=== PATIENT | male | born 1960 | race African-American/Black ===

== ENCOUNTER 2021-12-19 23:45 | Emergency (ER) | payer BC ==
[2021-12-19 23:53] VITALS: BP 136/100; PULSE 80; RESP 18; TEMP 98.6; BMI 26.6
[2021-12-20] MEDS ORDERED: FAMOTIDINE 20 MG/50 ML IVPB 20 MG/50 ML MG IVPB ONE ×2 (00:20→00:51)
[2021-12-20] MEDS ORDERED: ACETAMINOPHEN 1000 MG/100 ML BAG IVPB ONE (00:20)
[2021-12-20] MEDS ORDERED: ONDANSETRON 4 MG/2 ML VIAL IVPUSH ONE (00:20)
[2021-12-20] MEDS ORDERED: SODIUM CHLORIDE 0.9% 500 ML INFUS.BAG IV ONE (00:20)
[2021-12-20] MEDS ORDERED: ACETAMINOPHEN INJECTION 100 ML IVPB ONE (00:51)
[2021-12-20] MEDS ORDERED: ONDANSETRON 4 MG/2 ML VIAL ONE (00:51)
[2021-12-20 01:25] LABS: BASO % 1.3 % (0-2.0); EOS % 0.9 % (0-4.5); HEMATOCRIT 38.5 % (35.4-49); HEMOGLOBIN 12.9 GM/dL (11.7-16.9); LYMPH % 45.9 % (8-40); MCH 30.6 pg (25.7-33.7); MCHC 33.4 g/dl (32.0-35.9); MEAN CELL VOLUME 91.5 fl (80-96); MONO % 9.7 % (3.8-10.2); NEUT % 42.2 % (42.8-82.8); PLATELET COUNT 200 10^3/uL (134-434); RBC 4.21 M/mm3 (4.00-5.60); RDW 11.9 % (11.9-15.9); WHITE BLOOD COUNT 4.5 K/mm3 (4.0-10.0)
[2021-12-20 02:27] LABS: CALCIUM 8.9 mg/dL (8.5-10.1)
[2021-12-20 02:28] LABS: ALBUMIN 3.7 g/dl (3.4-5.0); BLOOD UREA NITROGEN 13.8 mg/dL (7-18); MAGNESIUM 2.1 mg/dL (1.8-2.4)
[2021-12-20 02:32] LABS: BILIRUBIN,TOTAL 0.6 mg/dL (0.2-1); TOT PROT 7.3 g/dl (6.4-8.2)
== END 2021-12-20 03:24 | disposition home or self-care (01) ==
LOC: JER 23:45
DX: R10.13 Epigastric pain (principal)
CPT/HCPCS: 36415; 76705-TC; 80053; 83690; 83735; 85025; 93005; 93010; 99284-25